=== PATIENT | male | born 1990 | race Caucasian/White ===

== ENCOUNTER 2024-04-05 10:35 | Emergency (ER) | payer OTHER, SELFPAY ==
[2024-04-05 10:39] VITALS: BP 146/96; PULSE 107; RESP 18; TEMP 37.1; O2SAT 96; BMI 31.2
--- NOTE | 2024-04-05 10:46 | CRLHL7_ITS ---
For Patients: As a result of the Cures Act, medical imaging exams and procedure reports are released immediately into your electronic medical record. You may view this report before your referring provider. If you have questions, please contact your health care provider. INDICATION: Left ankle injury. FINDINGS: Three views of the left ankle were obtained. There is soft tissue swelling laterally. There is no acute fracture or dislocation. IMPRESSION: No acute bone abnormality. Dictated by Gilmer Arellano MD @ 04/05/2024 11:22:26 AM (Electronically Signed)
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
[2024-04-05 11:31] VITALS: PULSE 88
== END 2024-04-05 11:38 | disposition home or self-care (01) ==
PROVIDERS: Emergency Provider Emergency Medicine Emergency Medical Services
DX: S93.402A Sprain of unspecified ligament of left ankle, initial encounter (principal); V86.69XA Passenger of other special all-terrain or other off-road motor vehicle injured in nontraffic accident, initial encounter
CPT/HCPCS: 73610; 99283; 99284